=== PATIENT | female | born 1980 | race Hispanic/Latino ===

== ENCOUNTER 2020-03-25 04:17 | Emergency (ER) | payer SELFPAY ==
[2020-03-25] MEDS ORDERED: TETRACAINE HCL 0.5% 4ML OPTH ONE (04:47)
[2020-03-25] MEDS ORDERED: FLUORESCEIN SODIUM 1 MG/WRAP ONE (04:47)
[2020-03-25] MEDS ORDERED: NEO/POLY/DEX OPTH 5 ML BOT ONE (05:07)
--- NOTE | 2020-03-25 05:08 | EDPHYS ---
Physician Documentation [facility] Name: Miguel Angel Durand Age: 39 yrs Sex: Female : 1980 Arrival Date: 03/25/2020 Time: 04:18 Bed 20 Private MD: ED Physician Geoff Sanabria HPI: 03/25 05:01 This 39 yrs old Female presents to ER via Ambulatory with complaints of Eye Pain. pkl 05:01 to the right eye. Onset: The symptoms/episode began/occurred 3 day(s) ago. Associated pkl signs and symptoms: Pertinent positives: pain, itching and redness. 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 - Social history:: Smoking status: Patient denies any tobacco usage or history of. ROS: 05:01 ENT: Negative for injury, pain, and discharge. pkl 05:01 Eyes: Positive for itching, pain, redness, of the right eye. 05:01 Neck: Negative for stiffness. 05:01 Cardiovascular: Negative for chest pain. 05:01 Respiratory: Negative for cough, shortness of breath. 05:01 Abdomen/GI: Negative for abdominal pain, nausea, vomiting, and diarrhea. 05:01 Back: Negative for acute changes. 05:01 : Negative for urinary symptoms. 05:01 MS/extremity: Negative for acute changes. 05:01 Skin: Negative for rash. 05:01 Neuro: Negative for altered mental status. Exam: 05:01 Visual Acuity: I have reviewed the nursing documentation. pkl 05:01 Head/Face: Normocephalic, atraumatic. 05:01 Eyes: Conjunctiva: injected, in the right eye. 05:01 ENT: Exam is negative for acute changes. 05:01 Neck: Exam negative for nuchal rigidity. 05:01 Chest/axilla: Exam negative for acute changes. 05:01 Cardiovascular: Rate: normal, Rhythm: regular. 05:01 Respiratory: the patient does not display signs of respiratory distress, Respirations: normal, Breath sounds: are clear throughout. 05:01 Abdomen/GI: Bowel sounds: normal, Palpation: abdomen is soft and non-tender, in all quadrants. 05:01 Back: Exam negative for acute changes. 05:01 : Exam negative for acute changes. 05:01 Musculoskeletal/extremity: Exam is negative for acute changes. 05:01 Skin: Exam negative for rash. 05:01 Neuro: Orientation: is normal, Mentation: is normal, Cranial nerves: grossly normal, Motor: is normal. Vital Signs: 04:27 BP 148 / 97; Pulse 77; Resp 18; Temp 97.9; Pulse Ox 100% on R/A; mg2 04:29 Weight 58.97 kg; Height 5 ft. 4 in. (162.56 cm); Pain 9/10; ea 04:29 Body Mass Index 22.31 (58.97 kg, 162.56 cm) ea Visual Acuity: 05:01 Left Eye Visual acuity 20/20, Normal, Reactive To Accomodation; Right Eye Visual acuity mg2 20/40, Normal; Without Lenses; MDM: 04:24 Patient medically screened. pkl 05:05 Data reviewed: vital signs, nurses notes. pkl 03/25 04:58 Order name: Visual Acuity; Complete Time: 05:00 pkl Administered Medications: 05:00 Drug: Maxitrol 2 drops Route: Ophthalmic; Site: right eye; mg2 05:17 Drug: UltRAM 50 mg Route: PO; mg2 05:18 Follow up: Response: No adverse reaction; Medication administered at discharge. mg2 Disposition: 03/25/20 05:07 Discharged to Home. Impression: Right conjunctivitis. - Condition is Stable. - Prescriptions for Ultram 50 mg Oral Tablet - take 1 tablet by ORAL route every 8 hours As needed; 12 tablet. - Medication Reconciliation Form, Thank You Letter, Antibiotic Education, Prescription Opioid Use form. - Follow up: Zoila Herrera MD; When: 1 - 2 days; Reason: Re-evaluation by your physician. - Problem is new. - Symptoms are unchanged. Signatures: Geoff Sanabria MD MD pkl Lena Andujar RN RN ea Davidson Santana RN RN mg2 Corrections: (The following items were deleted from the chart) 05:18 05:07 03/25/2020 05:07 Discharged to Home. Impression: Right conjunctivitis. Condition mg2 is Stable. Forms are Medication Reconciliation Form, Thank You Letter, Antibiotic Education, Prescription Opioid Use. Follow up: Zoila Herrera; When: 1 - 2 days; Reason: Re-evaluation by your physician. Problem is new. Symptoms are unchanged. pkl
--- NOTE | 2020-03-25 05:08 | ER ---
Nurse's Notes [facility] Name: Miguel Angel Durand Age: 39 yrs Sex: Female : 1980 Arrival Date: 03/25/2020 Time: 04:18 Bed 20 Private MD: Diagnosis: Right conjunctivitis Presentation: 03/25 04:29 Chief complaint: Patient states: Reports she started having redness, burning and ea itching to right eye since Monday. Family reports she things she may have an allergic reaction to a plant. Reports symptoms have worsened since Monday. Coronavirus screen: At this time, the client does not indicate any symptoms associated with coronavirus-19. Ebola Screen: No symptoms or risks identified at this time. Mechanism of Injury: No Mechanism of Injury. Initial Sepsis Screen: Does the patient meet any 2 criteria? No. Patient's initial sepsis screen is negative. Does the patient have a suspected source of infection? No. Patient's initial sepsis screen is negative. Risk Assessment: Do you want to hurt yourself or someone else? Patient reports no desire to harm self or others. Onset of symptoms was March 25, 2020. 04:29 Method Of Arrival: Ambulatory ea 04:29 Acuity: RAVEN 3 ea 05:02 The patient denies any loss of vision. mg2 Triage Assessment: 04:32 General: Appears uncomfortable, Behavior is appropriate for age. Pain: Complains of ea pain in right eye. EENT: Sclera/Cornea are reddened in outer aspect of conjuctiva of right eye and inner aspect of conjuctiva of right eye. Neuro: Level of Consciousness is awake, alert, obeys commands, Oriented to person, place, time. Respiratory: Airway is patent Respiratory effort is even, unlabored, Respiratory pattern is regular, symmetrical. Derm: Skin is pink, warm \T\ dry. 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 - Social history:: Smoking status: Patient denies any tobacco usage or history of. Screenin:31 Abuse screen: Denies threats or abuse. Nutritional screening: No deficits noted. ea Tuberculosis screening: No symptoms or risk factors identified. Fall Risk None identified. Assessment: 05:01 General: Appears in no apparent distress. comfortable, Behavior is calm, cooperative. mg2 Pain: Complains of pain in right eye. Neuro: Level of Consciousness is awake, alert, obeys commands, Oriented to person, place, time, situation. Cardiovascular: Capillary refill < 3 seconds Patient's skin is warm and dry. Respiratory: Airway is patent Respiratory effort is even, unlabored, Respiratory pattern is regular, symmetrical. GI: No signs and/or symptoms were reported involving the gastrointestinal system. : No signs and/or symptoms were reported regarding the genitourinary system. EENT: Eyes are tearing on outer aspect of conjuctiva of right eye, iris of right eye and inner aspect of conjuctiva of right eye. Derm: Skin is intact, is healthy with good turgor, Skin is pink, warm \T\ dry. normal. Musculoskeletal: Circulation, motion, and sensation intact. Capillary refill < 3 seconds. Vital Signs: 04:27 BP 148 / 97; Pulse 77; Resp 18; Temp 97.9; Pulse Ox 100% on R/A; mg2 04:29 Weight 58.97 kg; Height 5 ft. 4 in. (162.56 cm); Pain 9/10; ea 04:29 Body Mass Index 22.31 (58.97 kg, 162.56 cm) ea Visual Acuity: 05:01 Left Eye Visual acuity 20/20, Normal, Reactive To Accomodation; Right Eye Visual acuity mg2 20/40, Normal; Without Lenses; ED Course: 04:18 Patient arrived in ED. ag3 04:24 Geoff Sanabria MD is Attending Physician. pkl 04:27 Davidson Santana, BEN is Primary Nurse. mg2 04:31 Triage completed. ea 04:32 Patient has correct armband on for positive identification. Bed in low position. Call ea light in reach. Side rails up X 1. 04:32 Arm band placed on right wrist. Patient placed in an exam room, on a stretcher, on ea pulse oximetry. 05:02 No provider procedures requiring assistance completed. mg2 05:06 Zoila Herrera MD is Referral Physician. pkl 05:18 IV discontinued, intact, bleeding controlled, No redness/swelling at site. Pressure mg2 dressing applied. Administered Medications: 05:00 Drug: Maxitrol 2 drops Route: Ophthalmic; Site: right eye; mg2 05:17 Drug: UltRAM 50 mg Route: PO; mg2 05:18 Follow up: Response: No adverse reaction; Medication administered at discharge. mg2 Outcome: 05:07 Discharge ordered by . damion 05:18 Discharged to home ambulatory, with family. mg2 05:18 Condition: stable 05:18 Discharge instructions given to patient, family, Instructed on discharge instructions, follow up and referral plans. medication usage, Demonstrated understanding of instructions, follow-up care, medications, Prescriptions given X 1. 05:18 Patient left the ED. mg2 Signatures: Geoff Sanabria MD MD pkl Antunez, Elena RN RN Davidson Gilbert RN RN Bianca Ramírez3
[2020-03-25] MEDS ORDERED: TRAMADOL HCL 50 MG TAB ONE (05:27)
[2020-03-25 05:33] VITALS: BP 148/97; TEMP 97.9; O2SAT 100
== END 2020-03-25 05:18 | disposition home or self-care (01) ==
LOC: ER 04:17
DX: H10.9 Unspecified conjunctivitis (principal)
CPT/HCPCS: 99283

== ENCOUNTER 2021-08-16 01:34 | Emergency (ER) | payer SELFPAY ==
[2021-08-16 02:42] LABS: Absolute Lymphocytes (CBC) 2.4 K/uL (0.7-4.9); Hematocrit 40.6 % (36.0-45.0); Lymphocytes % 39.6 % (15.3-44.8); MPV 9.3 fL (7.6-11.3); RBC Red Blood Cell Count 4.32 M/uL (3.86-4.86)
[2021-08-16 02:47] LABS: Protime INR 1.04
[2021-08-16 03:02] LABS: BUN Blood Urea Nitrogen 4 mg/dL (7-18); Bicarbonate 24 mmol/L (21-32); Glucose Level 122 mg/dL (74-106); Potassium 3.1 mmol/L (3.5-5.1); Sodium Level 143 mmol/L (136-145)
[2021-08-16] MEDS ORDERED: POTASSIUM CL SA 10 MEQ TAB PO ONE (03:46)
[2021-08-16] MEDS ORDERED: IBUPROFEN 400 MG TAB ONE (04:26)
[2021-08-16] MEDS ORDERED: IBUPROFEN 200 MG TAB PO ONE (04:26)
--- NOTE | 2021-08-16 05:39 | EDPHYS ---
Physician Documentation [facility] Name: Miguel Angel Durand Age: 41 yrs Sex: Female : 1980 Arrival Date: 08/16/2021 Time: 01:38 Bed 2 Private MD: ED Physician Augie Eaton HPI: 08/16 01:48 This 41 yrs old Female presents to ER via Unassigned with complaints of ms3 Headache, tingling of hands and face. 01:48 The patient complains of pain to the left occipital area. The patient describes the ms3 headache as constant. Onset: The symptoms/episode began/occurred 8 day(s) ago. Associated signs and symptoms: The patient has no apparent associated signs or symptoms. Severity of symptoms: At its worst the pain was severe, in the emergency department the pain is unchanged. 41-year-old female with past medical history of asthma presents for left occipital headache that has been ongoing for 8 days. States the pain is severe stabbing. Patient drank a few beers today to attempt to relieve the pain. Patient denies alleviating or inciting factors.. 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 - Social history:: Smoking status: Patient reports the use of cigarette tobacco products, denies chronic smoking, but will smoke occasionally. ROS: 01:48 Constitutional: Negative for fever, and chills. Eyes: Negative for injury, pain, ms3 redness, and discharge, Neck: Negative for injury, pain, and swelling, Cardiovascular: Negative for chest pain, and palpitations. Respiratory: Negative for shortness of breath, cough, wheezing, and pleuritic chest pain, Abdomen/GI: Negative for abdominal pain, nausea, vomiting, diarrhea, and constipation, MS/Extremity: Negative for injury and deformity, Skin: Negative for injury, rash, and discoloration. 01:48 Neuro: Positive for headache. 01:48 All other systems are negative. Exam: 01:48 Constitutional: This is a well developed, well nourished patient who is awake, alert, ms3 and in no acute distress. Head/Face: Normocephalic, atraumatic. Neck: Trachea midline, no cervical lymphadenopathy. Supple, full range of motion without nuchal rigidity, or vertebral point tenderness. No Meningismus. Chest/axilla: Normal chest wall appearance and motion. Nontender with no deformity. Cardiovascular: Regular rate and rhythm with a normal S1 and S2. No gallops, murmurs, or rubs. Normal PMI, no JVD. No pulse deficits. Respiratory: Lungs have equal breath sounds bilaterally, clear to auscultation and percussion. No rales, rhonchi or wheezes noted. No increased work of breathing, no retractions or nasal flaring. Abdomen/GI: Soft, non-tender, with normal bowel sounds. No distension or tympany. No guarding or rebound. No evidence of tenderness throughout. Back: No spinal tenderness. No costovertebral tenderness. Full range of motion. MS/ Extremity: Pulses equal, no cyanosis. Neurovascular intact. Full, normal range of motion. 01:48 Eyes: Periorbital structures: appear normal, Pupils: equal, round, and reactive to light and accomodation, Extraocular movements: intact throughout, Conjunctiva: injected, bilaterally, Corneas: Disconjugate gaze of L eye when looking straight ahead. 02:28 ECG was reviewed by the Attending Physician. ms3 Vital Signs: 02:07 BP 127 / 77; Pulse 94; Resp 26 S; Temp 98.3(O); Pulse Ox 100% on R/A; Weight 49.9 kg as6 (R); Height 5 ft. 3 in. (160.02 cm) (R); Pain 10/10; 03:03 BP 112 / 77; Pulse 88; Resp 22 S; Pulse Ox 100% on R/A; as6 03:49 BP 103 / 61; Pulse 93; Resp 22 S; Pulse Ox 100% on R/A; as6 04:50 BP 119 / 79; Pulse 91; Resp 22 S; Pulse Ox 100% on R/A; as6 02:07 Body Mass Index 19.49 (49.90 kg, 160.02 cm) as6 MDM: 01:48 Differential diagnosis: cervical epidural bleed, neoplasm, subarachnoid bleed, Alcohol ms3 intoxication. 01:52 Patient medically screened. ms3 05:39 Data reviewed: vital signs, nurses notes, lab test result(s), EKG, radiologic studies, ms3 CT scan, plain films. Data interpreted: clinical research monitor: rate is 88 beats/min, rhythm is normal sinus rhythm, Interpretation: normal rate, normal rhythm. Counseling: I had a detailed discussion with the patient and/or guardian regarding: the historical points, exam findings, and any diagnostic results supporting the discharge/admit diagnosis, lab results, radiology results, the need for outpatient follow up. ED course: Discussed discharge options with patient via cra Marychuy #[id number]. Discussed CT, chest x-ray, labs, physical exam findings with patient. Patient to follow-up with her primary care physician in 1 to 2 days. Patient understands and agrees with plan. All questions were answered. Return precautions discussed include worsening symptoms or any concerns. On reevaluation patient improved, no apparent distress, nontoxic-appearing.. 08/16 01:48 Order name: Basic Metabolic Panel; Complete Time: 03:19 ms3 08/16 01:48 Order name: CBC with Diff; Complete Time: 03:19 ms3 08/16 01:48 Order name: Protime (+inr); Complete Time: 03:19 ms3 08/16 01:48 Order name: Ptt, Activated; Complete Time: 03:19 ms3 08/16 01:48 Order name: ETOH Level; Complete Time: 03:19 ms3 08/16 02:31 Order name: Glucose, Ancillary Testing; Complete Time: 03:19 EDMS 08/16 01:48 Order name: CT Stroke Brain w/o Contrast ms3 08/16 01:48 Order name: Stroke CXR 1 View ms3 08/16 01:48 Order name: EKG; Complete Time: 01:48 ms3 08/16 01:48 Order name: Accucheck; Complete Time: 02:32 ms3 08/16 01:48 Order name: Cardiac monitoring; Complete Time: 02:32 ms3 08/16 01:48 Order name: EKG - Nurse/Tech; Complete Time: 02:32 ms3 08/16 01:48 Order name: IV Saline Lock; Complete Time: 02:32 ms3 08/16 01:48 Order name: Labs collected and sent; Complete Time: 02:32 ms3 08/16 01:48 Order name: NPO; Complete Time: 02:32 ms3 08/16 01:48 Order name: O2 Per Protocol; Complete Time: 02:33 ms3 08/16 01:48 Order name: O2 Sat Monitoring; Complete Time: 02: ms3 08/16 01:48 Order name: Stroke Swallow Screen; Complete Time: : ms3 EC:28 Rate is 88 beats/min. Rhythm is regular. QRS [place] is Normal. [place] interval is normal. ms3 Clinical impression: Normal ECG. Interpreted by me. Administered Medications: 03:49 Drug: Potassium Chloride 40 mEq Route: PO; as6 05:05 Follow up: Response: No adverse reaction as6 04:25 Drug: Ibuprofen 600 mg Route: PO; as6 05:05 Follow up: Response: No adverse reaction as6 Disposition Summary: 08/16/21 05:39 Discharge Ordered Location: Home ms3 Condition: Stable ms3 Diagnosis - Alcohol abuse with intoxication ms3 - Head pain ms3 - Hypokalemia ms3 Followup: ms3 - With: Anil Sen MD - When: 1 - 2 days - Reason: Re-evaluation by your physician Discharge Instructions: - Discharge Summary Sheet ms3 - Alcohol Intoxication, [id number] ms3 - General Headache Without Cause, [id number] ms3 - Hypokalemia ms3 Forms: - Medication Reconciliation Form ms3 - Thank You Letter ms3 - Antibiotic Education ms3 - Prescription Opioid Use ms3 Signatures: Dispatcher [employer] Augie Abraham DO DO ms3 Rosas Marsh, RN RN as6
--- NOTE | 2021-08-16 05:39 | ER ---
Nurse's Notes [facility] Name: Miguel Angel Durand Age: 41 yrs Sex: Female : 1980 Arrival Date: 08/16/2021 Time: 01:38 Bed 2 Private MD: Diagnosis: Alcohol abuse with intoxication;Head pain;Hypokalemia Presentation: 08/16 02:07 Chief complaint: Patient states: pt c/o sharp pain to left side of head Friend and/or as6 Co-Worker states: "She's been having this pain for 8 or 9 days and its just getting worse". Coronavirus screen: At this time, the client does not indicate any symptoms associated with coronavirus-19. Ebola Screen: No symptoms or risks identified at this time. Initial Sepsis Screen: Does the patient meet any 2 criteria? No. Patient's initial sepsis screen is negative. Does the patient have a suspected source of infection? No. Patient's initial sepsis screen is negative. Risk Assessment: Do you want to hurt yourself or someone else? Patient reports no desire to harm self or others. Onset of symptoms was August 07, 2021. 02:07 Method Of Arrival: Ambulatory as6 02:07 Acuity: RAVEN 3 as6 Triage Assessment: 02:35 Headache History: Denies prior headaches. General: Appears in no apparent distress. as6 uncomfortable, Behavior is calm, cooperative. Pain: Complains of pain in left occipital area Pain began 8-9 days ago Also complains of no other associated symptoms. 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 - Social history:: Smoking status: Patient reports the use of cigarette tobacco products, denies chronic smoking, but will smoke occasionally. Screenin:33 Abuse screen: Denies threats or abuse. Denies injuries from another. Nutritional as6 screening: No deficits noted. Tuberculosis screening: No symptoms or risk factors identified. The patient has not been NPO before screening. The patient is currently on the following diet: regular The patient is alert, able to follow commands. The patient does not exhibit slurred or garbled speech The patient is not exhibiting difficulty speaking. The patient does not exhibit difficulty understanding words. The patient is able to swallow own secretions with no drooling or need for suction. Patient tolerated one teaspoon of water. No drooling, immediate coughing, gurgling, or clearing of the throat was noted. The patient tolerated 90mL of water. No drooling, immediate coughing, gurgling, or clearing of the throat was noted. The patient passed the bedside swallow screening. Oral medications may be given as ordered. Contact Physician for further diet orders. Provider notified of bedside swallow screening results: Augie Eaton DO. Fall Risk None identified. Assessment: 02:34 General: Appears in no apparent distress. uncomfortable, Behavior is calm, cooperative. as6 Pain: Complains of pain in left occipital area Pain currently is 10 out of 10 on a pain scale. Quality of pain is described as sharp. Neuro: Reports headache in left occipital area. 03:50 General: pt still c/o headache, provider notified . as6 Vital Signs: 02:07 BP 127 / 77; Pulse 94; Resp 26 S; Temp 98.3(O); Pulse Ox 100% on R/A; Weight 49.9 kg as6 (R); Height 5 ft. 3 in. (160.02 cm) (R); Pain 10/10; 03:03 BP 112 / 77; Pulse 88; Resp 22 S; Pulse Ox 100% on R/A; as6 03:49 BP 103 / 61; Pulse 93; Resp 22 S; Pulse Ox 100% on R/A; as6 04:50 BP 119 / 79; Pulse 91; Resp 22 S; Pulse Ox 100% on R/A; as6 02:07 Body Mass Index 19.49 (49.90 kg, 160.02 cm) as6 ED Course: 01:38 Patient arrived in ED. es 01:40 Augie Eaton DO is Attending Physician. ms3 01:58 Rosas Marsh, BEN is Primary Nurse. as6 02:11 Triage completed. as6 02:13 Arm band placed on. as6 02:30 Inserted saline lock: 18 gauge in right antecubital area, using aseptic technique. as6 Blood collected. 02:33 Ptt, Activated Sent. as6 02:33 Protime (+inr) Sent. as6 02:33 CBC with Diff Sent. as6 02:33 Basic Metabolic Panel Sent. as6 02:33 ETOH Level Sent. as6 02:36 Bed in low position. Call light in reach. Side rails up X 1. Adult w/ patient. Cardiac as6 monitor on. Pulse ox on. NIBP on. Warm blanket given. 02:50 CT Stroke Brain w/o Contrast In Process Unspecified. EDMS 03:24 Assisted to bathroom. as6 04:14 Stroke CXR 1 View In Process Unspecified. EDMS 05:38 Anil Sen MD is Referral Physician. ms3 05:39 No provider procedures requiring assistance completed. IV discontinued, intact, as6 bleeding controlled, No redness/swelling at site. Pressure dressing applied. Administered Medications: 03:49 Drug: Potassium Chloride 40 mEq Route: PO; as6 05:05 Follow up: Response: No adverse reaction as6 04:25 Drug: Ibuprofen 600 mg Route: PO; as6 05:05 Follow up: Response: No adverse reaction as6 Outcome: 05:39 Discharge ordered by . ms3 05:39 Discharged to home ambulatory, with family. as6 05:39 Condition: stable 05:39 Discharge instructions given to patient, family, Instructed on discharge instructions, follow up and referral plans. Demonstrated understanding of instructions, follow-up care. 05:45 Patient left the ED. as6 Signatures: Dispatcher [employer] Evangelina Levin Marcus, DO DO ms3 Rosas Marsh, BEN RN as6
[2021-08-16 06:25] VITALS: O2SAT 100
[2021-08-16 06:27] VITALS: TEMP 98.3
[2021-08-16 06:29] VITALS: BP 119/79
--- NOTE | 2021-08-16 08:19 | EKG ---
Test Date: 2021-08-16 Test Time: 02:28:08 Card Filer: MEASUREMENT RESULTS: Intervals: Rate: 88 MT: 158 QRSD: 82 QT: 388 QTc: 469 [place]: P: 68 MT: 158 QRS: 49 T: 48 INTERPRETIVE STATEMENTS: Normal sinus rhythm Normal ECG No previous ECG available for comparison Electronically Signed On 08-16-21 08:19:16 CDT by Tim eSars
--- NOTE | 2021-08-16 13:06 | RAD REPORT ---
EXAM DESCRIPTION: RAD - Chest Single View - 08/16/2021 4:14 am CLINICAL HISTORY: The patient is 41 years old and is Female; SOB TECHNIQUE: Single view of the chest. COMPARISON: No relevant prior studies available. FINDINGS: Lungs: No pulmonary vascular congestion or consolidation. Pleural space: Unremarkable. No pneumothorax. Heart: Unremarkable. No cardiomegaly. Mediastinum: Unremarkable. Bones/joints: No acute fracture visualized. Upper abdomen: No free air in the visualized upper abdomen. IMPRESSION: No acute cardiopulmonary process identified. Electronically signed by: Magy Olvera MD 08/16/2021 5:26 AM CDT Due to temporary technical issues with the PACS/Fluency reporting system, reports are being signed by the in house radiologist without review as a courtesy to ensure prompt reporting. The interpreting r adiologist is fully responsible for the content of the report.
--- NOTE | 2021-08-16 13:11 | RAD REPORT ---
EXAM DESCRIPTION: CT - Ct Stroke Brain Wo Cont - 08/16/2021 4:34 am CLINICAL HISTORY: Headache, disconjugate gaze COMPARISON: None. TECHNIQUE: CT HEAD WITHOUT IV CONTRAST on 08/16/2021 1:48 AM CDT This exam was performed according to our departmental dose-optimization program, which includes autom ated exposure control, adjustment of the mA and/or kV according to patient size and/or use of iterati ve reconstruction technique. FINDINGS: There is no acute hemorrhage, mass effect or midline shift. [place]-white differentiation is preserved. There is no hydrocephalus. There is no significant volume loss for age. There is a jovan ci sterna magna. The calvarium is intact. Orbits and globes are unremarkable. The paranasal sinuses are clear. Mastoid air cells are clear. IMPRESSION: No acute intracranial findings. Electronically signed by: Chris Laguerre MD 08/16/2021 3:05 AM CDT Due to temporary technical issues with the PACS/Fluency reporting system, reports are being signed by the in house radiologist without review as a courtesy to ensure prompt reporting. The interpreting r adiologist is fully responsible for the content of the report.
== END 2021-08-16 05:45 | disposition home or self-care (01) ==
LOC: ER 01:34
DX: F10.129 Alcohol abuse with intoxication, unspecified (principal); E87.6 Hypokalemia; J45.909 Unspecified asthma, uncomplicated; F17.210 Nicotine dependence, cigarettes, uncomplicated
CPT/HCPCS: 36415; 70450; 71045; 80048; 80320; 82947; 85025; 85610; 85730; 93005; 99284

== ENCOUNTER 2022-12-29 10:20 | Emergency (ER) | payer SELFPAY ==
--- NOTE | 2022-12-29 11:18 | RAD REPORT ---
EXAM DESCRIPTION: Oksana Single View12/29/2022 11:07 am CLINICAL HISTORY: cough COMPARISON: 2021 FINDINGS: The lungs appear clear of acute infiltrate. The heart is normal size IMPRESSION: No acute abnormalities displayed
[2022-12-29 11:20] LABS: SARS-CoV-2 Antigen Rapid Res Positive (Negative)
--- NOTE | 2022-12-29 11:26 | EDPHYS ---
Physician Documentation [facility] Name: Alexandro Durand Age: 42 yrs Sex: Female : 1980 Arrival Date: 12/29/2022 Time: 10:20 Bed 15 Private MD: ED Physician Leonel Rojas HPI: 12/29 12:32 This 42 yrs old Female presents to ER via Ambulatory with complaints of kb Breathing Difficulty, Sore Throat. 12:32 The patient or guardian reports cough, that is intermittent, described as mild, kb difficulty breathing, flu symptoms, low-grade fever, myalgias. Onset: The symptoms/episode began/occurred 4 day(s) ago. Severity of symptoms: At their worst the symptoms were moderate, in the emergency department the symptoms are unchanged. Modifying factors: The symptoms are alleviated by nothing, the symptoms are aggravated by nothing. Associated signs and symptoms: Pertinent positives: fever, rhinorrhea, sore throat. The patient has not experienced similar symptoms in the past. The patient has not recently seen a physician. 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 - Social history:: Smoking status: Patient reports the use of cigarette tobacco products, denies chronic smoking, but will smoke occasionally. ROS: 12:31 Abdomen/GI: Negative for abdominal pain, nausea, vomiting, diarrhea, and constipation. kb 12:31 Constitutional: Positive for body aches, chills, fatigue, fever, malaise. 12:31 ENT: Positive for rhinorrhea, sinus congestion, sore throat. 12:31 Respiratory: Positive for cough, shortness of breath. 12:31 All other systems are negative. Exam: 12:31 Constitutional: This is a well developed, well nourished patient who is awake, alert, kb and in no acute distress. Head/Face: Normocephalic, atraumatic. ENT: Moist Mucous membranes Cardiovascular: Regular rate and rhythm with a normal S1 and S2. No gallops, murmurs, or rubs. No pulse deficits. Respiratory: Respirations even and unlabored. No increased work of breathing. Talking in full sentences Abdomen/GI: Soft, non-tender. No distention Skin: Warm, dry with normal turgor. Normal color. MS/ Extremity: Pulses equal, no cyanosis. Neurovascular intact. Full, normal range of motion. Neuro: Awake and alert, GCS 15, oriented to person, place, time, and situation. Moves all extremities. Normal gait. Vital Signs: 10:30 BP 128 / 91; Pulse 91; Resp 20; Temp 98.4; Pulse Ox 100% on R/A; Weight 54.43 kg; nj1 Height 5 ft. 3 in. ; Pain 5/10; 11:27 BP 155 / 94; Pulse 81; Resp 18; Pulse Ox 100% on R/A; nj1 10:30 Body Mass Index 21.26 (54.43 kg, 160.02 cm) [facility] 10:30 Pain Scale: Adult nj1 MDM: 10:23 Patient medically screened. kb 12:32 Differential Diagnosis: Other flu, uri, pneumonia, strep, covid. Data reviewed: vital kb signs, nurses notes. Counseling: I had a detailed discussion with the patient and/or guardian regarding: the historical points, exam findings, and any diagnostic results supporting the discharge/admit diagnosis, lab results, radiology results, the need for outpatient follow up, a family practitioner, to return to the emergency department if symptoms worsen or persist or if there are any questions or concerns that arise at home. 12/29 10:35 Order name: Flu; Complete Time: 11:30 kb 12/29 10:35 Order name: Strep 12/29 11:07 Order name: SARS-COV-2 Antigen Rapid; Complete Time: 11:22 [facility] 12/29 11:20 Order name: Throat Culture [facility] 12/29 10:35 Order name: Chest Single View XRAY; Complete Time: 11:19 kb Administered Medications: No medications were administered Disposition: 14:37 Co-signature as Attending Physician, Leonel Rojas MD I reviewed the patient's care rn provided by the Advanced Practice Provider and agree with the diagnosis and treatment plan. Disposition Summary: 12/29/22 11:26 Discharge Ordered Location: Home kb Condition: Stable kb Diagnosis - SARS-associated coronavirus as the cause of diseases classified elsewhere kb Followup: kb - With: Emergency Department - When: As needed - Reason: Worsening of condition Followup: kb - With: Private Physician - When: 2 - 3 days - Reason: Recheck today's complaints, Continuance of care, Re-evaluation by your physician Discharge Instructions: - Discharge Summary Sheet kb - COVID-19 kb - Viral Illness, Adult kb Forms: - Medication Reconciliation Form kb - Thank You Letter kb - Antibiotic Education kb - Prescription Opioid Use kb - Patient Portal Instructions kb Prescriptions: - albuterol sulfate 90 mcg/actuation Inhalation HFA Aerosol Inhaler - inhale 2 inhalation by INHALATION route every 4-6 hours As needed as needed for kb shortness of breath or wheezing; 1 unit; Refills: 0, Product Selection Permitted Signatures: Dispatcher [employer] EDMS Naila Chisholm, HAND TOOL LAPPER-C HAND TOOL LAPPER-Leonel Damon MD MD rn Lewis, Lynsay RN RN ll1 Rafaela Barrow RN RN nj1 Corrections: (The following items were deleted from the chart) 11:07 10:35 SARS-COV-2 RT PCR+[id number] ordered. EDWY EDWY
--- NOTE | 2022-12-29 11:26 | ER ---
Nurse's Notes [facility] Name: Alexandro Durand Age: 42 yrs Sex: Female : 1980 Arrival Date: 12/29/2022 Time: 10:20 Bed 15 Private MD: Diagnosis: SARS-associated coronavirus as the cause of diseases classified elsewhere Presentation: 12/29 10:30 Chief complaint: Patient states: Sore throat, shortness of breath, no appetite and nj1 fever yesterday. 10:30 Coronavirus screen: Vaccine status: Patient reports being unvaccinated. Ebola Screen: nj1 Patient denies travel to an Ebola-affected area in the 21 days before illness onset. Initial Sepsis Screen: Does the patient meet any 2 criteria? HR > 90 bpm. No. Patient's initial sepsis screen is negative. Does the patient have a suspected source of infection? No. Patient's initial sepsis screen is negative. Risk Assessment: Do you want to hurt yourself or someone else? Patient reports no desire to harm self or others. Onset of symptoms was December 25, 2022. 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 - Social history:: Smoking status: Patient reports the use of cigarette tobacco products, denies chronic smoking, but will smoke occasionally. Screenin:50 [facility] ED Fall Risk Assessment (Adult) History of falling in the last 3 months, nj including since admission Score/Fall Risk Level 0 - 2 = Low Risk Oriented to surroundings, Maintained a safe environment, Hourly rounding (assess needs \\T\\ fall precautionary measures) done. Abuse screen: Denies threats or abuse. Denies injuries from another. Nutritional screening: No deficits noted. Nutritional screening: No deficits noted. Tuberculosis screening: No symptoms or risk factors identified. Assessment: 10:49 General: Appears in no apparent distress. uncomfortable, Behavior is calm, cooperative, nj1 appropriate for age. Pain: Complains of pain in Generalized Pain currently is 5 out of 10 on a pain scale. Neuro: Level of Consciousness is awake, alert, obeys commands, Oriented to person, place, time, situation. Cardiovascular: Patient's skin is warm and dry. Respiratory: Reports shortness of breath Airway is patent Respiratory effort is even, unlabored. Vital Signs: 10:30 BP 128 / 91; Pulse 91; Resp 20; Temp 98.4; Pulse Ox 100% on R/A; Weight 54.43 kg; nj1 Height 5 ft. 3 in. ; Pain 5/10; 11:27 BP 155 / 94; Pulse 81; Resp 18; Pulse Ox 100% on R/A; nj1 10:30 Body Mass Index 21.26 (54.43 kg, 160.02 cm) nj1 10:30 Pain Scale: Adult [facility] ED Course: 10:21 Patient arrived in ED. mr 10:23 Naila Chisholm FNP-C is PHCP. kb 10:23 Leonel Rojas MD is Attending Physician. kb 10:34 Arm band placed on Patient placed in an exam room, on a stretcher. 1 10:47 Rafaela Barrow, BEN is Primary Nurse. nj1 10:48 Triage completed. nj1 10:50 Patient has correct armband on for positive identification. Bed in low position. Call nj1 light in reach. Adult w/ patient. Provided Education on: fall precautions, call light . 11:09 Chest Single View XRAY In Process Unspecified. EDMS 11:41 No provider procedures requiring assistance completed. Patient did not have IV access nj1 during this emergency room visit. Administered Medications: No medications were administered Medication: 11:43 VIS not applicable for this client. nj1 Outcome: 11:26 Discharge ordered by . kb 11:43 Discharged to home ambulatory, with friend. nj1 11:43 Condition: stable 11:43 Discharge instructions given to patient, Instructed on discharge instructions, follow up and referral plans. medication usage, Demonstrated understanding of instructions, follow-up care, medications, Prescriptions given X 1. 11:43 Patient left the ED. nj1 Signatures: Dispatcher [employer] EDMS Naila Chisholm FNP-C FNP-Dariusz SheriffaMagali mr CorralNikhil, RN RN 1 Rafaela Barrow, BEN RN nj1 Corrections: (The following items were deleted from the chart) 11:41 11:27 Pulse 81bpm; Resp 18bpm; Pulse Ox 100% RA; nj1 nj1
[2022-12-29 11:53] VITALS: TEMP 98.4; O2SAT 100
[2022-12-29 11:55] VITALS: BP 155/94
== END 2022-12-29 11:43 | disposition home or self-care (01) ==
LOC: ER 10:20
DX: U07.1 COVID-19 (principal)
CPT/HCPCS: 36415; 71045; 87070; 87081; 87804; 87811; 99283